=== PATIENT | female | born 1980 | race Caucasian/White ===

== ENCOUNTER 2025-07-07 18:05 | Emergency (ER) | payer BC, OTHER ==
[~2025-07-07 18:05] MED LIST: Iopamidol 370 76% 100 ML VIAL ONE
[2025-07-07 19:06] LABS: Glucose, Urine (Dipstick) Negative (Negative); Leukocyte Negative (Negative); Protein, Urine (Dipstick) Negative (Neg-Trace); Specific Gravity, Urine 1.010 (1.005-1.030)
[2025-07-07 19:15] LABS: Bacteria/HPF Rare-Few HPF (None Seen); CAUTI Indications for Culture Pelvic or flank pain; RBC/HPF None Seen HPF (0-3); Urine Culture Reflex No No; WBC/HPF 0-3 HPF (0-3)
[2025-07-07] MEDS ORDERED: Ketorolac Tromethamine 30 MG (1 mL) VIAL ONE (19:16)
[2025-07-07] MEDS ORDERED: Ondansetron PF 4 MG/2 ML Vial ONE (19:16)
[2025-07-07 19:18] LABS: #Basophils 0.1 thou/uL (0.0-0.2); #Eosinophils 1.9 thou/uL (0.0-0.7); #Lymphocytes 2.9 thou/uL (1.20-3.40); #Monocytes 0.3 thou/uL (0.11-0.59); #Neutrophils 5.7 thou/uL (1.40-6.50); %Basophils 0.7 % (0.0-1.0); %Eosinophils 17.4 % (0.0-10.0); %Lymphocytes 26.7 % (21.0-51.0); %Monocytes 3.1 % (0.0-10.0); %Neutrophils 52.1 % (42.0-75.0); Hematocrit 45.6 % (36.0-47.0); Hemoglobin 14.8 g/dL (12.0-16.0); Mean Corpuscular Hemoglobin 29.4 pg (27.0-31.0); Mean Corpuscular Volume 90.7 fl (78.0-98.0); Platelet Count 361 10x3/uL (130-400); Red Blood Cell (RBC) Count 5.04 mill/uL (4.20-5.40); White Blood Cell (WBC) Count 10.9 10x3/uL (4.8-10.8)
[2025-07-07 19:26] LABS: BHCG - Serum Negative (NEGATIVE); Pregs Control Background? CLEAR/WHITE (CLR/WHITE); Pregs Control Bar Appear? YES (CONTROL BAR)
[2025-07-07 19:36] LABS: ALT (SGPT) 18 U/L (Less than 34); AST (SGOT) 18 U/L (11-34); Albumin 4.1 g/dL (3.1-4.5); Alkaline Phosphatase 101 U/L (40-110); Anion Gap 16 mmol/L (10-20); BUN (Urea Nitrogen) 12 mg/dL (7.0-18.7); Bilirubin, Total 0.3 mg/dL (0.3-1.2); Calc. Creatinine Clearance 0 mL/min (70-130); Calcium 9.3 mg/dL (7.8-10.44); Carbon Dioxide 25 mmol/L (22-29); Chloride 102 mmol/L (98-107); Globulin 2.9 g/dL (2.4-3.5); Glucose 86 mg/dL (70-105); Lipase 31 U/L (8-78); Magnesium 2.0 mg/dL (1.6-2.6); Potassium 3.4 mmol/L (3.5-5.1); Sodium 140 mmol/L (136-145)
== END 2025-07-07 21:41 | disposition home or self-care (01) ==
LOC: MADERS 18:05
DX: A09 Infectious gastroenteritis and colitis, unspecified (principal); E86.0 Dehydration; E11.9 Type 2 diabetes mellitus without complications; I10 Essential (primary) hypertension; Z87.891 Personal history of nicotine dependence; Z79.84 Long term (current) use of oral hypoglycemic drugs; Z79.899 Other long term (current) drug therapy
CPT/HCPCS: 74177; 80053; 81001; 83690; 83735; 84703; 85025; 96361; 96365; 96372; 96375; J1885; J2405; J2543; J2919; J7030; Q9967